=== PATIENT | male | born 1990 | race Caucasian/White ===

== ENCOUNTER 2020-05-05 05:58 | Emergency (ER) | payer OTHER ==
[2020-05-05 07:18] LABS: HEMOGLOBIN 14.6 gm/dl (14.0-17.5); RED BLOOD COUNT 4.96 M/UL (4.20-5.50); WHITE BLOOD COUNT 10.9 K/UL (4.5-11.0)
[2020-05-05] MEDS ORDERED: ENDOCET 5-3251 EACH PO (07:53)
[2020-05-05] MEDS ORDERED: ZOFRAN ODT 4 MG4 MG SL (07:53)
[2020-05-05 08:19] LABS: BUN/CREATININE RATIO 20 (0-10)
== END 2020-05-05 10:45 | disposition home or self-care (01) ==
LOC: ER1
DX: N13.2 Hydronephrosis with renal and ureteral calculous obstruction (principal); I10 Essential (primary) hypertension; Z88.0 Allergy status to penicillin
CPT/HCPCS: 80053; 81001; 82150; 83690; 85025; 99284; J1885; J2270; J2405

== ENCOUNTER 2020-08-09 01:15 | Emergency (ER) | payer OTHER ==
[~2020-08-09 01:15] MED LIST: ENDOCET 5-3251 EACH PO; ZOFRAN ODT 4 MG4 MG SL
[2020-08-09] MEDS ORDERED: BACTRIM DS TAB1 EACH PO (03:07)
== END 2020-08-09 03:10 | disposition home or self-care (01) ==
LOC: ER1 01:15
DX: S80.861A Insect bite (nonvenomous), right lower leg, initial encounter (principal); Z88.0 Allergy status to penicillin; W57.XXXA Bitten or stung by nonvenomous insect and other nonvenomous arthropods, initial encounter
CPT/HCPCS: 99282

== ENCOUNTER → 2020-12-29 | Outpatient (CLI) | payer OTHER ==
[~2020-12-29] MED LIST changes: +BACTRIM DS TAB1 EACH PO
== END ==
LOC: KOH-I 08:18
DX: R74.01 Elevation of levels of liver transaminase levels (principal); K76.0 Fatty (change of) liver, not elsewhere classified
CPT/HCPCS: 76700

== ENCOUNTER 2021-09-16 07:45 | Emergency (ER) | payer OTHER ==
[2021-09-16] MEDS ORDERED: IBUPROFEN600 MG PO (08:54)
== END 2021-09-16 09:32 | disposition home or self-care (01) ==
LOC: ER1 07:45
DX: S70.11XA Contusion of right thigh, initial encounter (principal); E78.5 Hyperlipidemia, unspecified; Z88.0 Allergy status to penicillin; W22.8XXA Striking against or struck by other objects, initial encounter; Y92.89 Other specified places as the place of occurrence of the external cause; Y99.0 Civilian activity done for income or pay
CPT/HCPCS: 73552; 99283